=== PATIENT | male | born 1960 | race Caucasian/White ===

== ENCOUNTER 2020-04-08 09:00 | Day surgery (SDC) | payer OTHER ==
[~2020-04-08] VITALS: Ht 177.8 cm; Wt 5.8 kg
[~2020-04-08 09:00] MED LIST: ALBU90OI; SPIRIVA RESPIMAT4 G1
== END 2020-04-08 11:40 | disposition home or self-care (01) ==
LOC: ORSCSDS 09:00
PROVIDERS: Internal Medicine Gastroenterology
PROC: 0DBN8ZX Excision of Sigmoid Colon, Via Natural or Artificial Opening Endoscopic, Diagnostic (ICD-10-PCS; principal; 2020-04-08 10:30)
PROC: 3E0H8GC Introduction of Other Therapeutic Substance into Lower GI, Via Natural or Artificial Opening Endoscopic (ICD-10-PCS; principal; 2020-04-08 10:30)
DX: R93.3 Abnormal findings on diagnostic imaging of other parts of digestive tract (principal); J44.9 Chronic obstructive pulmonary disease, unspecified; F17.210 Nicotine dependence, cigarettes, uncomplicated; Z79.899 Other long term (current) drug therapy
CPT/HCPCS: 88305; J2704; J7120

== ENCOUNTER → 2022-10-04 | Outpatient (CLI) | payer OTHER | END | disposition home or self-care (01) | LOC: LAB SHORT 14:53 → LAB 14:53 | DX: R50.9 Fever, unspecified (principal) | CPT/HCPCS: 87807 ==